=== PATIENT | male | born 1985 | race Caucasian/White ===

== ENCOUNTER 2017-04-20 00:55 | Emergency (ER) | payer MEDICAID ==
[~2017-04-20] VITALS: Ht 177.8 cm; Wt 68.0 kg
[2017-04-20 01:00] VITALS: BP 138/70
== END 2017-04-20 03:00 | disposition left against medical advice (07) ==
LOC: ER 00:59
DX: F10.10 Alcohol abuse, uncomplicated (principal); Z53.21 Procedure and treatment not carried out due to patient leaving prior to being seen by health care provider